=== PATIENT | male | born 1985 | race Caucasian/White ===

== ENCOUNTER → 2021-11-06 | Outpatient (CLI) | payer BC ==
--- NOTE | 2021-11-06 09:06 | Diagnostic Imaging Report ---
INDICATION: Chronic low back pain. EXAMINATION: Lumbar spine, 3 views. FINDINGS: The lumbosacral spine shows good alignment. Body height is well-maintained. There is mild narrowing of the disc space at L5-S1. Mild sclerotic changes of the endplates and the L5-S1 facets. SI joints are symmetrical and appear normal. Pedicles are intact. IMPRESSION: There is degenerative disc and facet disease noted at L5-S1. Dictated by: Dictated on workstation # [id number]
== END ==
LOC: RAD FS 08:29
PROVIDERS: ATTEND Nurse Practitioner
DX: M47.817 Spondylosis without myelopathy or radiculopathy, lumbosacral region (principal); M51.37 Other intervertebral disc degeneration, lumbosacral region
CPT/HCPCS: 72100